=== PATIENT | female | born 1965 | race Caucasian/White ===

== ENCOUNTER 2022-02-16 08:24 | Outpatient (CLI) | payer OTHER, SELFPAY ==
[2022-02-16 09:54] LABS: Albumin* 4.6 g/dL (3.3-5.0)
[2022-02-16 09:55] LABS: Chloride* 108 mmol/L (96-114); Potassium* 4.4 mmol/L (3.6-5.1); Sodium* 140 mmol/L (135-149)
[2022-02-16 09:57] LABS: Aspartate Amino Transferase* 28 U/L (12-35); Bilirubin Total* 0.7 mg/dL (0.1-1.5); Carbon Dioxide* 27 mmol/L (20-32); Cholesterol* 182 mg/dL (90-199); Creatinine* 0.6 mg/dL (0.5-1.5); Estimated Glomerular Filt Rate 105 ml/min; Total Protein* 7.1 g/dL (6.0-8.3)
[2022-02-16 09:58] LABS: Alanine Aminotransferase* 26 U/L (4-35); Alkaline Phosphatase* 65 U/L (40-150); Blood Urea Nitrogen* 7 mg/dL (7-30); Calcium* 9.2 mg/dL (8.4-10.6); Glucose* 87 mg/dL (60-115); HDL Cholesterol* 78 mg/dL (>=50); LDL Cholesterol Calculated 81 mg/dL (<100); Triglycerides* 114 mg/dL (40-149)
== END 2022-02-16 08:25 | disposition home or self-care (01) ==
PROVIDERS: Visit Provider Family Medicine
DX: E78.00 Pure hypercholesterolemia, unspecified (principal); E03.9 Hypothyroidism, unspecified; R73.03 Prediabetes; I10 Essential (primary) hypertension; E66.9 Obesity, unspecified; Z13.6 Encounter for screening for cardiovascular disorders
CPT/HCPCS: 80053; 80061; 84443

== ENCOUNTER 2022-06-21 15:40 | Outpatient (CLI) | payer OTHER, SELFPAY | END 2022-06-21 15:41 | disposition home or self-care (01) | LOC: LONREF 15:41 | PROVIDERS: Visit Provider Nurse Practitioner Family | DX: Z01.818 Encounter for other preprocedural examination (principal) | CPT/HCPCS: 80048 ==

== ENCOUNTER 2022-07-16 06:58 | Outpatient (CLI) | payer OTHER, SELFPAY ==
--- NOTE | 2022-07-16 08:41 | W.ANESCHARGE ---
Anesthesia Charges Start Date/Time Anesthesia Start Date: 07/16/22 Anesthesia Start Time: 08:01 Stop Date/Time Anesthesia Stop Date: 07/16/22 Anesthesia Stop Time: 08:37
--- NOTE | 2022-07-16 09:54 | W.ANESCHARGE ---
Anesthesia Charges Start Date/Time Anesthesia Start Date: 07/16/22 Anesthesia Start Time: 08:01 Stop Date/Time Anesthesia Stop Date: 07/16/22 Anesthesia Stop Time: 08:37
== END 2022-07-16 06:59 | disposition home or self-care (01) ==
LOC: OP CLINIC 07:00
PROVIDERS: PCP Nurse Practitioner Family; Visit Provider Surgery
DX: Z12.11 Encounter for screening for malignant neoplasm of colon (principal); K63.5 Polyp of colon; Z86.010 Personal history of colon polyps
CPT/HCPCS: 00811; 45385; 88305; J2704

== ENCOUNTER 2022-08-03 10:28 | Outpatient (CLI) | payer OTHER, SELFPAY ==
--- NOTE | 2022-08-03 10:45 | CRLHL7_ITS ---
For Patients: As a result of the Cures Act, medical imaging exams and procedure reports are released immediately into your electronic medical record. You may view this report before your referring provider. If you have questions, please contact your health care provider. DIGITAL DIAGNOSTIC BILATERAL MAMMOGRAM USING TOMOSYNTHESIS AND COMPUTER-AIDED DETECTION RIGHT BREAST ULTRASOUND CLINICAL HISTORY: RIGHT breast pain. COMPARISON: 04/21/2021, 03/04/2020, 01/29/2019, 05/12/2018. TECHNIQUE: Digital BILATERAL mammogram in four projections. Tomosynthesis and CAD utilized. Real-time ultrasound imaging of RIGHT breast with imaging documentation. BREAST COMPOSITION: There are areas of scattered fibroglandular density. FINDINGS: 3D CC/MLO BILATERAL mammogram images submitted. No suspicious masses or architectural distortion. No suspicious calcifications or adenopathy. Targeted RIGHT breast/axillary ultrasound performed, 10 o`clock 9 cm from the nipple. Normal soft tissues noted in the RIGHT axilla and normal breast tissue in upper outer quadrant RIGHT breast. No evidence of malignancy or adenopathy. IMPRESSION: Normal BILATERAL mammograms and targeted RIGHT breast ultrasound. No evidence of malignancy. RECOMMENDATIONS: Annual BILATERAL screening mammography. Results and recommendations discussed with the patient. BI-RADS Category 1: Negative A lay language report of this examination will be provided to the patient. Dictated by Judson Mae MD @ 08/03/2022 11:43:13 AM /Dictated by: Judson Mae MD @ 08/03/2022 11:43:00 AM (Electronically Signed)
--- NOTE | 2022-08-03 11:15 | CRLHL7_ITS ---
For Patients: As a result of the Century Cures Act, medical imaging exams and procedure reports are released immediately into your electronic medical record. You may view this report before your referring provider. If you have questions, please contact your health care provider. PLEASE SEE BILATERAL DIAGNOSTIC MAMMOGRAM OF SAME DAY. CRL:indio RAKESH/Dictated by: Judson Mae MD @ 08/03/2022 11:43:00 AM (Electronically Signed)
== END 2022-08-03 10:29 | disposition home or self-care (01) ==
LOC: MAMMO 10:29
PROVIDERS: PCP Family Medicine; Visit Provider Family Medicine
DX: N64.4 Mastodynia (principal); M79.89 Other specified soft tissue disorders
CPT/HCPCS: 76642; 77066; G0279

== ENCOUNTER 2023-02-22 07:35 | Outpatient (CLI) | payer OTHER, SELFPAY | END 2023-02-22 07:36 | disposition home or self-care (01) | PROVIDERS: PCP Family Medicine; Visit Provider Family Medicine | DX: I10 Essential (primary) hypertension (principal); R73.03 Prediabetes; E06.3 Autoimmune thyroiditis | CPT/HCPCS: 80053; 80061; 82306; 84443 ==

== ENCOUNTER 2023-07-18 06:57 | Emergency (ER) | payer OTHER, SELFPAY ==
[2023-07-18 07:10] LABS: Appearance Urine Clear (Clear); Bilirubin Urine Negative (Negative); Blood Urine Negative (Negative); Color Urine Yellow (Yellow); Glucose Urine Negative (Negative); Ketones Urine Negative (Negative); Leukocyte Esterase Urine 1+ (Negative); Nitrite Urine Negative (Negative); Protein Urine Negative (Negative); Specific Gravity Urine 1.025 (1.000-1.030); Urobilinogen Urine 0.2 (0.2-1.0)
[2023-07-18 07:11] VITALS: BP 107/67; PULSE 78; RESP 18; TEMP 36.7; O2SAT 96; BMI 33.5
[2023-07-18 07:38] LABS: RBC Urine 0-2 (0-2); Squamous Epithelial Cell Urine Few (None-Few); WBC Urine 0-2 (0-5)
--- NOTE | 2023-07-18 08:07 | CT_ITS ---
[facility] Patient ID:?[id number] Site Patient ID:?[id number]. Site :?[id number] Study:?CT-Abdomen/Pelvis 95CC ISOVUE 370-07/18/2023 8:47:19 AM Ordering Physician:?DR. PEARSON Final Report: Indication: Right flank pain, pressure on pelvis Technique: Volumetric multidetector CT images of the abdomen and pelvis were obtained after the administration of intravenous contrast. 95 cc Isovue 370 low osmolar intravenous contrast Comparison: CT abdomen and pelvis March 18, 2015 Findings: There is minimal basilar atelectasis and parenchymal scar. The liver is normal in attenuation without intrahepatic biliary ductal dilatation. The portal vein is patent. There is prior cholecystectomy. There is no significant common biliary ductal dilatation or abrupt cut off. The spleen is normal in enhancement and size. The stomach and duodenum are grossly unremarkable. The pancreas is normal in enhancement without significant atrophy. The adrenal glands are unremarkable. The kidneys demonstrate preserved corticomedullary differentiation without evidence of obstructive uropathy. There is a mild amount of stool seen throughout the colon. There is mild distal colonic diverticulosis. The appendix is unremarkable. There is no significant mesenteric, retroperitoneal, or pelvic sidewall lymph nodes. The aorta is nonaneurysmal. There is no significant atherosclerotic disease appreciated. The solid pelvic viscera are grossly unremarkable. There is no free fluid or free air. There is mild diastasis of the rectus musculature with a small fat containing umbilical hernia. The lumbar vertebral body heights are grossly maintained with mild to moderate degenerative disc disease. Impression: No evidence of hydronephrosis or obstructive uropathy. Moderate to severe stool seen throughout the colon. Minimal distal colonic diverticulosis without evidence of diverticulitis. Otherwise, no acute intra-abdominal abnormality is appreciated. Please note that all CT scans at this facility use dose modulation, iterative reconstruction, and/or weight-based dosing when appropriate to reduce radiation dose to as low as reasonably achievable. Dictated by Bradley Haq MD @ 07/18/2023 9:09:52 AM Signed by:?Bradley Haq MD @07/18/2023 9:09:52 AM (Electronic Signature)
[2023-07-18 08:15] VITALS: BP 115/71; PULSE 66; O2SAT 96
[2023-07-18 08:27] LABS: Basophils Absolute Auto 0.01 K/uL (0.00-0.30); Basophils Percent Auto 0.2 % (0.0-3.0); Eosinophils Absolute Auto 0.05 K/uL (0.00-0.50); Hematocrit 38.6 % (33.0-51.0); Hemoglobin* 13.2 gm/dL (12.0-16.0); Immature Granulocytes Abs Auto 0.01 K/uL (0.00-0.30); Immature Granulocytes Pct Auto 0.2 %; Lymphocytes Absolute Auto 1.38 K/uL (0.90-2.90); Lymphocytes Percent Auto 28.5 % (20-44); Mean Corpuscular HGB Conc 34 gm/dL (32-36); Mean Corpuscular Hemoglobin 32 pg (26-34); Mean Corpuscular Volume 94 fL (80-100); Monocytes Percent Auto 9.7 % (0.0-11.0); Neutrophils Absolute Auto 2.93 K/uL (1.7-7.0); Neutrophils Percent Auto 60.4 % (42.0-72.0); Platelet Count* 232 K/uL (140-440); RDW Coefficient of Variation % 11.8 % (11.5-15.5); Red Blood Count 4.12 m/uL (4.00-5.20); White Blood Count* 4.85 K/uL (4.50-11.00)
[2023-07-18 08:33] LABS: Slide Review Reflex No
[2023-07-18 08:43] LABS: Chloride* 110 mmol/L (96-114)
[2023-07-18 08:44] LABS: Potassium* 3.8 mmol/L (3.6-5.1); Sodium* 139 mmol/L (135-149)
[2023-07-18 08:46] LABS: Creatinine* 0.6 mg/dL (0.5-1.5); Est. Creatinine Clearance* 89.33; Estimated Glomerular Filt Rate 105 ml/min
[2023-07-18 08:47] LABS: Anion Gap 3 mEq/L (7-15); Blood Urea Nitrogen* 12 mg/dL (7-30); Calcium* 9.5 mg/dL (8.4-10.6); Carbon Dioxide* 26 mmol/L (20-32); Glucose* 103 mg/dL (60-115)
--- NOTE | 2023-07-18 08:52 | ED.FEMALEGU ---
HPI - Female Genitourinary General Chief complaint: Urogenital Problems, Female Stated complaint: Bladder infection Time Seen by Provider: 07/18/23 08:03 History of Present Illness HPI Narrative: Patient is a 57-year-old woman with history of urinary retention who presents feeling like she cannot empty her bladder. She has pressure in her lower abdomen as well as general abdominal discomfort. She has had no change in her bowels. She had a postvoid residual upon arrival to with 7 mm. She has otherwise been in her usual state of health but states that her symptoms are irritating enough that she had a leave work today to coming to be evaluated. She has otherwise been feeling well. She does have history of prediabetes all continue and is on Zepbound and trazodone. No other significant symptoms noted. Related Data Home Medications Medication Instructions Recorded Confirmed ergocalciferol (vitamin D2) 1,250 50,000 unit PO QWEEK 02/16/22 07/18/23 mcg (50,000 unit) capsule tirzepatide (weight loss) 2.5 2.5 mg subcut .every week 07/18/23 07/18/23 mg/0.5 mL subcutaneous pen injector (Zepbound) trazodone 100 mg tablet 100 mg PO QPM 07/18/23 07/18/23 Previous Rx's Medication Instructions Recorded atorvastatin 20 mg tablet 20 mg PO QDAY #90 tabs 02/22/23 levothyroxine 100 mcg tablet 100 mcg PO QDAY #90 tabs 02/28/23 fluoxetine 20 mg capsule 20 mg PO QDAY #90 caps 03/12/23 amlodipine 5 mg tablet 5 mg PO DAILY #90 tabs 07/02/23 Allergies Allergy/AdvReac Type Severity Reaction Status Date / Time morphine Allergy Mild Nausea Verified 07/18/23 08:43 simvastatin AdvReac Intermediate Headache Verified 07/18/23 08:43 Review of Systems Status of ROS: Reports: 10 or more systems reviewed and unremarkable except as noted in History and below [facility] Medical History Obesity (BMI 30.0-34.9) ?E66.9 - Obesity, unspecified (ICD-10) 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, unspecified (ICD-10) Prediabetes ?R73.03 - Prediabetes (ICD-10) Hypertension ?I10 - Essential (primary) hypertension (ICD-10) Hypercholesterolemia ?E78.00 - Pure hypercholesterolemia, unspecified (ICD-10) History of vitamin D deficiency ?Z86.39 - Personal history of other endocrine, nutritional and metabolic disease (ICD-10) 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) History of colonic polyps (2016) ?Z86.010 - Personal history of colonic polyps (ICD-10) Surgical History History of tubal ligation (2002) ?Z98.51 - Tubal ligation status (ICD-10) History of repair of rotator cuff (09/02/09) ?Z98.890 - Other specified postprocedural states (ICD-10) History of fistula (2000) ?Z87.59 - Personal history of other complications of , childbirth and the puerperium (ICD-10) History of endometrial ablation (02/21/11) ?Z98.890 - Other specified postprocedural states (ICD-10) History of colonoscopy (12/19/16) ?Z98.890 - Other specified postprocedural states (ICD-10) History of cholecystectomy (06/05/12) ?Z90.49 - Acquired absence of other specified parts of digestive tract (ICD-10) History of carpal tunnel surgery of right wrist (2018) ?Z98.890 - Other specified postprocedural states (ICD-10) History of benign breast biopsy ?Z98.890 - Other specified postprocedural states (ICD-10) History of 2 sections (2002) ?Z98.891 - History of uterine scar from previous surgery (ICD-10) Family History Maternal Grandmother Breast cancer, Onset Age: 80 Father Myocardial infarction, Onset Age: 50 FH: kidney cancer, Onset Age: 62 Mother Coronary artery disease Diabetes Stroke, Onset Age: 79 Social History Narrative: , [employer], 3 kids, no regular exercise nonsmoker, social drinker 7/week, esha What is your current living situation?: I presently have a place to live Problems where you live: declined to answer In the past 12 months, utilities in danger of being shut off: no In past 12 months, lack of transportation kept you from medical appts, meetings, work, or getting things needed for daily living: no In the past 12 mos, have been you worried that your food would run out before you had money to buy more?: never true In the past 12 mos, the food you bought just didn't last and you didn't have money to buy more?: never true Smoking Status: Never smoker How often do you have a drink containing alcohol: never How often do you have six or more drinks on one occasion: Never AUDIT-C Alcohol total score: 0 Non-prescribed substance use: denies use How often does anyone, including family, friends and others, physically hurt you: never How often does anyone, including family, friends and others, insult or talk down to you: never How often does anyone, including family, friends and others, threaten you with harm: never How often does anyone, including family, friends and others, scream or curse at you: never Little interest or pleasure in doing things: not at all Feeling down, depressed, or hopeless: not at all Exam Narrative: Exam Narrative: EXAM GENERAL: Patient appears comfortable and well. EYES: No scleral icterus. LYMPH: No supraclavicular or cervical lymphadenopathy. SKIN: Visible skin seen during exam normal or with benign process only. EXT: No dependent lower extremity pedal edema. HEART: Regular rate and rhythm with no murmurs, rubs, or gallops. LUNGS: Clear to auscultation bilaterally with no crackles or wheezes. ABD: Soft, non tender, non distended. PSYCH: Good eye contact, speech is not pressured. Const: Vital Signs, click to edit/add: Vital Signs - 24 hr 07/18/23 07:11 07/18/23 08:15 Temperature 98.0 F Pulse Rate [Pulse Oximeter] 78 66 Respiratory Rate 18 Blood Pressure [Ri ght Upper Arm] 107/67 115/71 Pulse Oximetry 96 96 Oxygen Delivery Me thod Room Air Room Air Course Course ED Course: Patient seen examined. CT abdomen pelvis UA CBC basic metabolic panel pending. Vital Signs Vital signs: Initial Vital Signs Temperature 98.0 F 07/18/23 07:11 Temperature Source Temporal Artery Scan 07/18/23 07:11 Pulse Rate 78 07/18/23 07:11 Pulse Rhythm Regular 07/18/23 07:11 Respiratory Rate 18 07/18/23 07:11 Blood Pressure 107/67 07/18/23 07:11 Blood Pressure Mean 80 07/18/23 07:11 Blood Pressure Position Sitting 07/18/23 07:11 Pulse Oximetry 96 07/18/23 07:11 Oxygen Delivery Method Room Air 07/18/23 07:11 Vital Signs Temperature 98.0 F 07/18/23 07:11 Pulse Rate 78 07/18/23 07:11 Respiratory Rate 18 07/18/23 07:11 Blood Pressure 107/67 07/18/23 07:11 Pulse Oximetry 96 07/18/23 07:11 Oxygen Delivery Method Room Air 07/18/23 07:11 Temperature 98.0 F 07/18/23 07:11 Pulse Rate 66 07/18/23 08:15 Respiratory Rate 18 07/18/23 07:11 Blood Pressure 115/71 07/18/23 08:15 Pulse Oximetry 96 07/18/23 08:15 Oxygen Delivery Method Room Air 07/18/23 08:15 MDM - Female Genitourinary MDM Narrative Medical decision making narrative: Patient is 57-year-old woman who presents with lower abdominal pain and urinary frequency. Postvoid residual is 7 mL of urine. Evaluation will include sick constipation on CT no other acute abnormalities. UA is consistent with urinary tract infection. This time will be treating her with Bactrim and Pyridium with a plenty of rest plenty fluids. We will follow-up with her primary physician as needed. Differential diagnosis includes but not limited to kidney stone urinary tract infection pyelonephritis acute appendicitis ovarian cyst diverticulitis. Lab Data Labs: Lab Results 07/18/23 07/18/23 Range/Units 07:05 08:15 WBC 4.85 (4.50-11.00) K/uL RBC 4.12 (4.00-5.20) m/uL Hgb 13.2 (12.0-16.0) gm/dL Hct 38.6 (33.0-51.0) % MCV 94 (80-100) fL MCH 32 (26-34) pg MCHC 34 (32-36) gm/dL RDW Coeff of Tiffanie 11.8 (11.5-15.5) % Plt Count 232 (140-440) K/uL Neut % (Auto) 60.4 (42.0-72.0) % Lymph % (Auto) 28.5 (20-44) % [place] % (Auto) 9.7 (0.0-11.0) % Eos % (Auto) 1.0 (0.0-7.0) % Baso % (Auto) 0.2 (0.0-3.0) % Neut # (Auto) 2.93 (1.7-7.0) K/uL Lymph # (Auto) 1.38 (0.90-2.90) K/uL [place] # (Auto) 0.50 (0.00-0.90) K/UL Eos # (Auto) 0.05 (0.00-0.50) K/uL Baso # (Auto) 0.01 (0.00-0.30) K/uL Abs Immat Gran (auto) 0.01 (0.00-0.30) K/uL Imm/Tot Granulo (auto) 0.2 % Sodium 139 (135-149) mmol/L Potassium 3.8 (3.6-5.1) mmol/L Chloride 110 (96-114) mmol/L Carbon Dioxide 26 (20-32) mmol/L Anion Gap 3 L (7-15) mEq/L BUN 12 (7-30) mg/dL Creatinine 0.6 (0.5-1.5) mg/dL Estimated Creat Clear 89.33 Estimated GFR 105 ml/min Glucose 103 (60-115) mg/dL Calcium 9.5 (8.4-10.6) mg/dL Urine Color Yellow (Yellow) Urine Appearance Clear (Clear) Urine pH 6.0 (5.0-8.5) Ur Specific [place] 1.025 (1.000-1.030) Urine Protein Negative (Negative) Urine Glucose (UA) Negative (Negative) Urine Ketones Negative (Negative) Urine Blood Negative (Negative) Urine Nitrite Negative (Negative) Urine Bilirubin Negative (Negative) Urine Urobilinogen 0.2 (0.2-1.0) Ur Leukocyte Esterase 1+ A (Negative) Urine RBC 0-2 (0-2) Urine WBC 0-2 (0-5) Ur Squamous Epith Cells Few (None-Few) Urine Bacteria None (None) Discharge Plan Discharge Clinical Impression: Urinary tract infection Patient Disposition: Home, Self-Care Condition: Stable Instructions: Urinary Tract Infection in Women (ED) Additional Instructions: Bactrim as directed Pyridium as directed Rest Fluids Tylenol Motrin Primary care follow-up as needed. Activity Level: No Restrictions Discharge Diet: Regular Prescriptions: No Action atorvastatin 20 mg tablet 20 mg PO QDAY Qty: 90 3RF fluoxetine 20 mg capsule 20 mg PO QDAY Qty: 90 3RF ergocalciferol (vitamin D2) 1,250 mcg (50,000 unit) capsule 50,000 unit PO QWEEK trazodone 100 mg tablet 100 mg PO QPM Zepbound 2.5 mg/0.5 mL pen injector 2.5 mg subcut .every week levothyroxine 100 mcg tablet 100 mcg PO QDAY Qty: 90 3RF amlodipine 5 mg tablet 5 mg PO DAILY Qty: 90 2RF Follow Up/Referrals: Natalie Sheehan MD [Primary Care Provider] - Stand Alone Forms: [employer] Info Instructions
== END 2023-07-18 10:15 | disposition home or self-care (01) ==
PROVIDERS: Emergency Provider Internal Medicine; PCP Family Medicine
DX: N39.0 Urinary tract infection, site not specified (principal)
CPT/HCPCS: 36415; 74177; 80048; 81001; 81003; 85025; 87086; 99283; 99284; 99285; Q9967

== ENCOUNTER 2023-08-12 13:06 | Outpatient (CLI) | payer OTHER, SELFPAY ==
--- NOTE | 2023-08-12 13:00 | MM_ITS ---
Patient: TRACIE ERAZO Facility:?[facility] Patient ID:?[id number] Site Patient ID:?[id number] Site :?1965 Study:?XRay-Breast Bilateral 3D W/CAD-08/12/2023 1:39:22 PM Ordering Physician:Po Final Report: BILATERAL SCREENING MAMMOGRAM WITH COMPUTER-AIDED DETECTION AND TOMOSYNTHESIS TECHNIQUE: CC and MLO views were obtained. These mammographic images have been obtained using full-field digital technique. These mammographic images were interpreted with the benefit of computer-aided detection. Breast tomosynthesis was used in this interpretation. COMPARISON FILM: 08/03/22, 04/21/21, 03/04/20. FINDINGS: There are scattered areas of fibroglandular density. IMPRESSION: There is no radiographic evidence for malignancy. ASSESSMENT: BI-RADS Category 2: Benign RECOMMENDATION: Routine screening mammogram in 1 year. A lay language report of this examination will be provided to the patient. HENRY MONTIEL M.D. Diagnostic Radiologist [email or web address]/[email or web address] D& Transcribed: 1:[address]/Dictated by: Henry Montiel MD @ 08/13/2023 9:16:00 AM Signed by:?Henry Montiel MD @08/13/2023 2:04:55 PM (Electronic Signature)
== END 2023-08-12 13:07 | disposition home or self-care (01) ==
LOC: MAMMO 13:07
PROVIDERS: PCP Family Medicine; Visit Provider Family Medicine
DX: Z12.31 Encounter for screening mammogram for malignant neoplasm of breast (principal)
CPT/HCPCS: 77063; 77067

== ENCOUNTER 2024-02-18 16:00 | Outpatient (CLI) | payer OTHER, SELFPAY | END 2024-02-18 16:01 | disposition home or self-care (01) | LOC: NFLDREF 02-21 17:16 | PROVIDERS: PCP Family Medicine; Referring Provider Family Medicine; Visit Provider Family Medicine | DX: R53.83 Other fatigue (principal); J20.9 Acute bronchitis, unspecified; I10 Essential (primary) hypertension; R73.03 Prediabetes; E78.00 Pure hypercholesterolemia, unspecified; E03.9 Hypothyroidism, unspecified; R05.9 Cough, unspecified | CPT/HCPCS: 80053; 80061; 82306; 84443 ==

== ENCOUNTER 2024-07-13 12:14 | Outpatient (CLI) | payer OTHER, SELFPAY | END 2024-07-13 12:15 | disposition home or self-care (01) | PROVIDERS: PCP Registered Nurse; Visit Provider Physician Assistant Medical | DX: E03.9 Hypothyroidism, unspecified (principal); M85.852 Other specified disorders of bone density and structure, left thigh; R53.83 Other fatigue; Z13.21 Encounter for screening for nutritional disorder | CPT/HCPCS: 82306; 82607; 84443 ==

== ENCOUNTER 2024-07-20 06:54 | Outpatient (CLI) | payer OTHER, SELFPAY ==
--- NOTE | 2024-07-20 07:15 | CRLHL7_ITS ---
For Patients: As a result of the Century Cures Act, medical imaging exams and procedure reports are released immediately into your electronic medical record. You may view this report before your referring provider. If you have questions, please contact your health care provider. Indication: Anterior/right abdominal wall lump with pain. Technique: Grayscale and color Doppler ultrasound of the right anterior abdominal wall performed. IMPRESSION: Focal defect in the abdominal wall fascia noted in the area of concern measuring 5 x 4 millimeters. This contains fat. No abnormal vascularity. No shadowing mass. No adenopathy. No fluid collection. Findings compatible with small fat filled hernia. Dictated by Judson Mae MD @ 07/20/2024 4:00:38 PM (Electronically Signed)
== END 2024-07-20 06:55 | disposition home or self-care (01) ==
LOC: US 06:55
PROVIDERS: PCP Registered Nurse; Referring Provider Physician Assistant Medical; Visit Provider Physician Assistant Medical
DX: R19.01 Right upper quadrant abdominal swelling, mass and lump (principal)
CPT/HCPCS: 76705

== ENCOUNTER 2024-08-06 15:22 | Outpatient (CLI) | payer OTHER, SELFPAY ==
--- NOTE | 2024-08-06 16:00 | CRLHL7_ITS ---
For Patients: As a result of the Cures Act, medical imaging exams and procedure reports are released immediately into your electronic medical record. You may view this report before your referring provider. If you have questions, please contact your health care provider. Indication: Localized swelling, RT abd mass and lump, trunk, clinically not a hernia Technique: CT Abdomen/Pelvis W/ ISOVUE 370 intravenous contrast Please note that all CT scans at this facility use dose modulation, iterative reconstruction, and/or weight-based dosing when appropriate to reduce radiation dose to as low as reasonably achievable. Comparison: Ultrasound 07/20/2024 Findings: The abdominal wall appears intact. No evidence of spigelian hernia. Findings on ultrasound appear to represent normal tissue. No soft tissue mass, fluid collection, abscess or adenopathy. Normal bladder. Uterus unremarkable. Normal ovaries. No bowel obstruction or free air. Mild atherosclerotic changes. No aneurysm. Adrenal glands are within normal limits. Normal kidneys. Incidental extrarenal pelvis noted bilaterally. The ureters are within normal limits. Normal spleen. The pancreas is unremarkable. Mild scarring within both lung bases. The gallbladder is absent. No biliary obstruction. No intrahepatic mass. Discogenic spurring lumbar spine. No vertebral body compression fracture. Impression: No abdominal wall mass or hernia. No suspicious findings. Please note that all CT scans at this facility use dose modulation, iterative reconstruction, and/or weight-based dosing when appropriate to reduce radiation dose to as low as reasonably achievable. Dictated by Judson Mae MD @ 08/07/2024 3:18:17 PM (Electronically Signed)
== END 2024-08-06 15:23 | disposition home or self-care (01) ==
LOC: CT 15:22
PROVIDERS: PCP Registered Nurse; Visit Provider Surgery
DX: R22.2 Localized swelling, mass and lump, trunk (principal)
CPT/HCPCS: 74177; Q9967

== ENCOUNTER 2024-08-25 15:17 | Outpatient (CLI) | payer OTHER, SELFPAY | END 2024-08-25 15:18 | disposition home or self-care (01) | LOC: LKVREF 15:18 | PROVIDERS: PCP Registered Nurse; Visit Provider Emergency Medicine | DX: Z01.818 Encounter for other preprocedural examination (principal) | CPT/HCPCS: 80048 ==

== ENCOUNTER 2024-08-31 11:02 | Outpatient (CLI) | payer OTHER, SELFPAY ==
--- NOTE | 2024-08-31 11:30 | CRLHL7_ITS ---
For Patients: As a result of the Century Cures Act, medical imaging exams and procedure reports are released immediately into your electronic medical record. You may view this report before your referring provider. If you have questions, please contact your health care provider. INDICATION: BILATERAL SCREENING MAMMOGRAM, ASYMPTOMATIC 58 Y/O FEMALE COMPARISON: 08/12/2023, 08/01/2022, 04/21/2021 TECHNIQUE: Digital mammogram in CC and MLO projections including computer-aided detection (CAD) and tomosynthesis. BREAST COMPOSITION: There are scattered areas of fibroglandular density. FINDINGS: No suspicious findings. ASSESSMENT: BI-RADS 1 Negative RECOMMENDATION: Annual screening mammogram. A lay language report of this examination will be provided to the patient. Dictated by: Judson Mae MD @ 09/08/2024 12:13:13 (Electronically Signed)
== END 2024-08-31 11:03 | disposition home or self-care (01) ==
LOC: MAMMO 11:03
PROVIDERS: PCP Registered Nurse; Visit Provider Family Medicine
DX: Z12.31 Encounter for screening mammogram for malignant neoplasm of breast (principal)
CPT/HCPCS: 77063; 77067

== ENCOUNTER 2024-09-07 07:49 | Day surgery (SDC) | payer OTHER, SELFPAY ==
[2024-09-07 08:00] VITALS: BP 108/73; PULSE 64; RESP 18; TEMP 36.7; O2SAT 95; BMI 28.5
[2024-09-07] MEDS: LACTATED RINGERS 500 ML 500 ML 100 ML IV (08:15)
[2024-09-07] MEDS: SODIUM CHLORIDE 0.9 % (FLUSH) 10 ML SYRINGE IVF (08:15)
--- NOTE | 2024-09-07 08:47 | W.PM.H&PU ---
History & Physical Update History & Physical Update H&P Reviewed and patient assessed: No changes noted
--- NOTE | 2024-09-07 08:47 | PM.GSPRC ---
Operative Note Date of procedure: 09/07/24 Pre-op diagnosis: 1. Right mid abdominal painful mass. Post-op diagnosis: 1. Right mid abdominal wall lipoma Type of Procedure: 1. Excision of right mid abdominal wall mass. Indications: 58-year-old female was seen in clinic for evaluation of a painful right abdominal wall lump that was noticed a long time ago. The lump was painful when somebody was touching it or when she turned on her side. The pain was occasionally radiating to her right flank or her lower back and the patient was not sure if those 2 things were related. This lump has not changed in size with activity or heavy lifting. Patient had an abdominal wall ultrasound in June of 2024 that showed 5 x 4 mm Franko's fascial defect. On clinical exam patient had a painful lump in the right mid abdomen correction between the umbilicus and the right flank. Patient had to help me find the lump and was approximately johnson sized and oriented horizontally. With Valsalva this did not change in size. Given patient's clinical history and her physical exam, the lump was suspicious for lipoma or angiolipoma. This was less likely to be a hernia. excision of this mass for diagnostic and therapeutic purposes was recommended. We discussed the excision in clinic versus excision in the operating room and the risks and benefits of both. Patient elected to proceed with excision of this lump in the operating room. The risks of the procedure including infection, bleeding, and persistence of pain were all discussed with the patient, and she agreed to proceed. Procedure Description: After discussing the risks and benefits of the procedure, the patient signed informed consent.? The operative site was marked and the patient was brought to the operating room and placed on the operating table in supine position.? Care was taken to pad the patient's pressure points.?? The patient was then sedated by anesthesia.?? The operative site was then prepped and draped in the usual sterile fashion.? A time-out was then performed. Local anesthetic was injected at the surgical site. A horizontal skin incision was made in the right mid abdomen over the palpable mass. This was marked in the preoperative area. Subcutaneous fat was divided with cautery. An elongated circumscribed soft to palpation collection of fat was identified and was protruding through the Franko's fascia. This was excised in multiple segments and sent to pathology. The size of the mass was approximately 2.5 x 1 cm. Subcutaneous fat was then dissected off anterior fascia to evaluate for fascial defect. The anterior fascia was explored and no fascial defect concerning for hernia was identified. Subcutaneous fat was then closed with interrupted 2-0 and 3-0 Vicryl sutures in layers. Additional local anesthetic was injected at the surgical site. The dermis was reapproximated with interrupted 3-0 Vicryl sutures. The skin was closed with a running 4-0 Monocryl stitch. Steri-Strips and sterile dressings were placed over the incision. ? The patient was then woken and transported to the recovery area in stable condition. ? The patient tolerated the procedure well. Findings: Subcutaneous fat protruding through the Franko's fascia and organized like a lipoma would. No anterior fascial defect. Anesthesia: MAC and local Surgeon: Carolyn Head MD Estimated blood loss (mL): 5 Additional Specimen Information: 1. Right mid abdominal wall mass. Condition: stable Disposition: same day
[2024-09-07] MEDS: CEFAZOLIN 1 GM inj IVP (09:12)
[2024-09-07] MEDS: LIDOCAINE 1%-EPI 1:100,000 20 ML INFILTRATI (09:23)
[2024-09-07] MEDS: BUPIVACAINE 0.25% 30 ML INJECTION (09:23)
[2024-09-07 09:45] VITALS: BP 91/55; PULSE 70; RESP 16; TEMP 36.7; O2SAT 93
--- NOTE | 2024-09-07 09:47 | P.ANES_ITS ---
Anesthesia Charges Start Date/Time Anesthesia Start Date: 09/07/24 Anesthesia Start Time: 09:03 Stop Date/Time Anesthesia Stop Date: 09/07/24 Anesthesia Stop Time: 09:45 Coding CPT Codes CPT Codes: ANESTH SKIN EXT/PER/ATRUNK - 19387 ([id number]) P2 - PATIENT W/MILD SYST DISEASE, QZ - INSTANT PRINTER OPERATOR SVC W/O BATCH MIXER BY
--- NOTE | 2024-09-07 09:47 | W.ANESCHARGE ---
Anesthesia Charges Start Date/Time Anesthesia Start Date: 09/07/24 Anesthesia Start Time: 09:03 Stop Date/Time Anesthesia Stop Date: 09/07/24 Anesthesia Stop Time: 09:45 Coding CPT Codes CPT Codes: ANESTH SKIN EXT/PER/ATRUNK - 43871 ([id number]) P2 - PATIENT W/MILD SYST DISEASE, QZ - SUPERVISOR SULFURIC ACID PLANT SVC W/O GROUND WOOD SUPERVISOR BY
[2024-09-07 10:00] VITALS: BP 96/63; PULSE 65; RESP 16; O2SAT 94
[2024-09-07 10:15] VITALS: BP 103/65; PULSE 62; RESP 16; TEMP 36.7; O2SAT 94
== END 2024-09-07 10:32 | disposition home or self-care (01) ==
PROVIDERS: PCP Registered Nurse; Visit Provider Surgery
PROC: (CPT 22903; principal; 2024-09-07 09:00)
DX: D17.1 Benign lipomatous neoplasm of skin and subcutaneous tissue of trunk (principal)
CPT/HCPCS: 22903; 00400; 88304; J0665; J0690; J1100; J1885; J2250; J2405; J2704; J3010; J7120